=== PATIENT | female | born 1945 | race Caucasian/White ===

== ENCOUNTER 2017-06-20 02:45 | Emergency (ER) | payer OTHER ==
[~2017-06-20] VITALS: Ht 157.5 cm; Wt 83.9 kg
[2017-06-20 03:15] VITALS: BP 118/79
[2017-06-20] MEDS ORDERED: LORazepam 0.5 MG TAB PO ONE (04:00)
[2017-06-20 04:24] LABS: Basophils # (auto) 0.1 uL; Basophils % (auto) 1.1 % (0.0-2.0); Eosinophils # (auto) 0 uL; Eosinophils % (auto) 0.1 % (0.0-7.0); Hemoglobin 15.5 g/dL (12.2-16.2); Lymphocytes # (auto) 1.2 uL; Lymphocytes % (auto) 20.1 % (10.0-50.0); Mean Corpuscular Hemoglobin 32.8 pg (28.0-32.0); Mean Corpuscular Hgb Conc. 34.6 g/dL (32.0-36.0); Mean Corpuscular Volume 94.8 fL (80.0-100.0); Monocytes # (auto) 0.3 uL; Monocytes % (auto) 5.6 % (0.0-12.0); Neutrophils # (auto) 4.4 uL; Neutrophils % (auto) 73.1 % (37.0-80.0); Nucleated Red Blood Cells % 0.1 %; Platelet Count (auto) 165 10^3/uL (140-450); Red Blood Cells 4.74 10^6/uL (4.0-5.20); Red Cell Distribution Width 14.1 % (11.8-14.3)
[2017-06-20 04:43] LABS: Albumin 2.8 g/dL (3.4-5.0); BUN/Creatinine Ratio 14.6; Calcium 8.7 mg/dL (8.5-10.1); Potassium 4.9 mmol/L (3.5-5.1)
[2017-06-20 04:45] LABS: Urine WBC 26783 /hpf (0 - 5); Urine WBC Clumps PRESENT /hpf (None Seen)
[2017-06-20 04:46] LABS: Bilirubin, Total 1.5 mg/dL (0.2-1.0); Total Protein 6.3 g/dL (6.4-8.2); Urine Blood 2+ /uL (Negative); Urine Specific Gravity 1.017 (1.001-1.035)
[2017-06-20 04:47] LABS: Urine Bacteria MANY /hpf (None Seen)
[2017-06-20] MEDS ORDERED: cefTRIAXone SOD 1,000 MG VL ONE (05:08)
[2017-06-20] MEDS ORDERED: CEFTRIAXONE SODIUM 2 GM in D5W 5% 50 ML IV ONE (05:15)
== END 2017-06-20 05:40 | disposition home or self-care (01) ==
LOC: ER 02:45
DX: N30.90 Cystitis, unspecified without hematuria (principal); I50.9 Heart failure, unspecified; J44.9 Chronic obstructive pulmonary disease, unspecified; I25.2 Old myocardial infarction; I48.91 Unspecified atrial fibrillation; Z90.49 Acquired absence of other specified parts of digestive tract
CPT/HCPCS: 36415; 74176; 80053; 81001; 82150; 83690; 85025; 87086; 93005; 94761; 96374; 99285; J0696; J7060